=== PATIENT | male | born 1955 | race Caucasian/White ===

== ENCOUNTER 2019-09-14 07:00 | Day surgery (SDC) | payer OTHER ==
[~2019-09-14] VITALS: Ht 182.9 cm; Wt 140.6 kg
[~2019-09-14 07:00] MED LIST: CEFAZOLIN SOD 1 GM in D5W 50 ML IV ONE
[2019-09-14] MEDS ORDERED: POLYMYXIN 500,000/BACIT.10,000 UNITS in NS IRR 1 L IR ONE (10:39)
[2019-09-14] MEDS ORDERED: D5/0.45 NS 1,000 ML IV SCH (13:12)
[2019-09-14] MEDS ORDERED: HYDROmorphone 1 MG INJ. 1 MG/ML AMPUL IVP PRN (13:15)
[2019-09-14] MEDS ORDERED: HYDROcodone/ACETAMIN 5-325 MG TAB (NORCO/ VICODIN) PO PRN ×2 (13:15)
[2019-09-14] MEDS ORDERED: KETOROLAC TROMETHAMINE 30 MG VIAL IVP PRN (13:45)
[2019-09-14] MEDS ORDERED: hydrALAZINE HCL 20 MG/ML VIAL IVP PRN (13:45)
[2019-09-14] MEDS ORDERED: METOCLOPRAMIDE HCL 10 MG/2 ML VIAL IVP PRN (13:45)
[2019-09-14] MEDS ORDERED: ONDANSETRON HCL 4 MG/2 ML VIAL IVP PRN (13:45)
[2019-09-14] MEDS ORDERED: MORPHINE 4 MG/ML INJ. SYRINGE IVP PRN (13:45)
[2019-09-14] MEDS ORDERED: MORPHINE 4 MG/ML INJ. SYRINGE ONE (13:57)
[2019-09-14] MEDS ORDERED: KETOROLAC TROMETHAMINE 30 MG VIAL ONE (14:27)
[2019-09-14] MEDS ORDERED: HYDROcodone/ACETAMIN 5-325 MG TAB (NORCO/ VICODIN) ONE (16:05)
[2019-09-14] MEDS ORDERED: ONDANSETRON HCL 4 MG/2 ML VIAL ONE (17:08)
[2019-09-14 18:22] VITALS: BP_SYST 138
== END 2019-09-14 17:50 | disposition home or self-care (01) ==
LOC: SMU 07:00 → SDS 07:00 → EDSTATUS 10:15 → SDS 17:50
PROVIDERS: ATTEND Colon & Rectal Surgery
DX: K40.30 Unilateral inguinal hernia, with obstruction, without gangrene, not specified as recurrent (principal); N43.3 Hydrocele, unspecified; E66.3 Overweight; I10 Essential (primary) hypertension; G47.33 Obstructive sleep apnea (adult) (pediatric); F41.9 Anxiety disorder, unspecified; N40.0 Benign prostatic hyperplasia without lower urinary tract symptoms; M10.9 Gout, unspecified; E78.5 Hyperlipidemia, unspecified; M18.12 Unilateral primary osteoarthritis of first carpometacarpal joint, left hand; Z99.89 Dependence on other enabling machines and devices; Z86.73 Personal history of transient ischemic attack (TIA), and cerebral infarction without residual deficits
CPT/HCPCS: 49507; 55040; 88302; C1781; J0690; J1885; J2270; J2405; J7060; J7120